=== PATIENT | female | born 1955 | race Caucasian/White ===

== ENCOUNTER 2018-09-14 16:49 | Emergency (ER) | payer SELFPAY ==
[2018-09-14] MEDS ORDERED: Ondansetron ODT 4 MG TAB ONE (17:22)
[2018-09-14] MEDS ORDERED: Prochlorperazine 10 MG/2 ML VIAL ONE (17:22)
== END 2018-09-14 17:52 | disposition home or self-care (01) ==
LOC: MADERS 16:49
DX: T62.8X1A Toxic effect of other specified noxious substances eaten as food, accidental (unintentional), initial encounter (principal); M19.90 Unspecified osteoarthritis, unspecified site; E03.9 Hypothyroidism, unspecified; I10 Essential (primary) hypertension; E66.9 Obesity, unspecified; Z79.899 Other long term (current) drug therapy
CPT/HCPCS: 96372; 99284; J0780; Q0162